=== PATIENT | female | born 1975 | race American Indian/Alaskan Native ===

== ENCOUNTER 2019-10-03 08:52 | Emergency (ER) | payer SELFPAY ==
--- NOTE | 2019-10-03 13:29 | Emergency Department Report ---
Chief Complaint: Upper Respiratory Infection Stated Complaint: SINUS Time Seen by Provider: 10/03/19 12:47 - HPI History of Present Illness: 44-year-old -[place] female patient presents for evaluation to rule out coronavirus x today. She states she has had 3 days of nasal congestion and that her job was concerned and sent her here for testing. She denies any fever/chills/sweats, cough, shortness of breath, recent travel outside the country, or contact with individuals who have recently traveled outside the country or have symptoms of the coronavirus. Patient states she has history of allergies and that her symptoms are due to this. She denies any facial pain or pressure or other complaints or concerns. - Exam Vital Signs: Vital Signs 10/03/19 08:56 Temperature 98.7 F Pulse Rate 95 H Respiratory 15 Rate Blood Pressure 177/99 [Right] O2 Sat by Pulse 98 Oximetry MSE screening note: Focused history and physical exam performed. Due to findings the following was ordered: ED Medical Decision Making - Medical Decision Making 44-year-old -[place] female patient presents for evaluation to rule out coronavirus x today. She states she has had 3 days of nasal congestion and that her job was concerned and sent her here for testing. She denies any fever/chills/sweats, cough, shortness of breath, recent travel outside the country, or contact with individuals who have recently traveled outside the country or have symptoms of the coronavirus. Patient states she has history of allergies and that her symptoms are due to this. She denies any facial pain or pressure or other complaints or concerns. Patient is well-appearing. Her vitals are stable. Blood pressure elevated- patient denies history of hypertension. She denies any chest pain, shortness of breath, headache, vision changes, dizziness, or other symptoms. Recommend follow-up with primary care provider for further evaluation of her blood pressure within 3 days. She is stable for discharge home. Discussed strict return precautions in detail with patient who verbalizes understanding. ED Disposition for MSE Clinical Impression: Nasal congestion, Elevated BP without diagnosis of hypertension Disposition: MED SCREENING EXAM-LEFT Is pt being admited?: No Condition: Stable Instructions: Allergic Rhinitis (ED), Hypertension (ED) Additional Instructions: Recommend [id number] fluticasone nasal spray and levocetirizine (Xyzal) as needed for congestion. Referrals: PRIMARY CARE, [Primary Care Provider] - 2-3 Days (Elevated blood pressure) Forms: Work/School Release Form(ED) Physical Exam - Physical Exam Vital Signs: Vital Signs 10/03/19 08:56 Temperature 98.7 F Pulse Rate 95 H Respiratory 15 Rate Blood Pressure 177/99 [Right] O2 Sat by Pulse 98 Oximetry ED General adult EXAM - General General appearance: alert, in no apparent distress Limitations: No Limitations - Head Head exam: Positive: atraumatic, normocephalic - ENT ENT exam: Positive: normal exam, normal orophraynx, other (Mild rhinorrhea noted bilaterally with moderate swelling of turbinates bilaterally. No sinus tenderness noted to palpation) - Neck Neck exam: Positive: normal inspection, full ROM. Negative: tenderness, lymphadenopathy - Respiratory Respiratory exam: Positive: normal lung sounds bilaterally. Negative: respiratory distress - Cardiovascular Cardiovascular Exam: Positive: regular rate, normal rhythm - Neurological Neurological exam: Positive: alert, oriented X3, normal gait - Psychiatric Psychiatric exam: Positive: normal affect, normal mood - Skin Skin exam: Positive: warm, dry, intact, normal color. Negative: rash, cyanosis, diaphoretic, erythema
[2019-10-03 13:47] VITALS: BP 130/83
== END 2019-10-03 13:45 | disposition left against medical advice (07) ==
LOC: ED 08:52
DX: R03.0 Elevated blood-pressure reading, without diagnosis of hypertension (principal); R09.81 Nasal congestion
CPT/HCPCS: 99281

== ENCOUNTER 2020-07-30 02:08 | Emergency (ER) | payer BC ==
[2020-07-30] MEDS ORDERED: ASPIRIN 325 MG TAB PO ONE (02:26)
--- NOTE | 2020-07-30 03:10 | Emergency Department Report ---
ED Chest Pain HPI - General Chief Complaint: Chest Pain Stated Complaint: SOB/CHEST PAIN PUI?: No Time Seen by Provider: 07/30/20 02:36 Source: patient Mode of arrival: Ambulatory Limitations: No Limitations - History of Present Illness Initial Comments: Patient is a 45-year-old female that presents emergency room with complaints of chest pain and difficulty breathing and shortness of breath and lightheadedness. Patient states that her symptoms started 2 hours prior to arrival. Patient states her chest pain is a pressure. Patient states it is a 5 out of 10. Patient states it is nonradiating. Patient states in the center of her chest. Patient states her chest pain and shortness of breath are unchanged with exertion. Patient states that her chest pain and shortness of breath have no modifying factors. Patient states that her blood pressure has been up for a few weeks. Patient states she is to have a prescription for lisinopril. Patient states she has been taking her 's lisinopril, lisinopril/hydrochl orothiazide 20 mg / 25 mg for few weeks. Patient states she took a dose yesterday morning.. Patient denies fever and chills. Patient denies nausea vomiting. Patient denies diaphoresis Patient denies recent travel. Patient denies recent international travel. Patient denies exposure to the novel coronavirus. Patient denies sick contacts. Patient denies fever and chills. Patient denies cough. Patient denies diarrhea. Patient denies coming in contact with anybody with symptoms of the no germaine coronavirus. MD Complaint: chest pain -: Sudden Onset: during rest Pain Location: substernal, left chest, right chest Pain Radiation: none Severity: mild Severity scale (0 -10): 5 Quality: pressure Consistency: constant Improves With: nothing Worsens With: nothing re: dyspnea. denies: nausea, vomting, diaphoresis, sense of impending doom Other Symptoms: denies: cough, fever, syncope, rash, acid taste in mouth, leg swelling, palpitations, burping Treatments Prior to Arrival: none Aspirin use within the Past 7 Days: (0) No - Related Data On Oral Contraceptives: No Previous Rx's Medication Instructions Recorded Last Taken Type Losartan/Hydrochlorothiazide 1 each PO DAILY 20 Days #20 tablet 07/30/20 Unknown Rx [Losartan-Hctz 100-25 mg Tab] Allergies Allergy/AdvReac Type Severity Reaction Status Date / Time No Known Allergies Allergy Unverified 10/03/19 08:57 Heart Score - HEART Score History: Slightly suspicious EKG: Normal Age: < 45 Risk factors: No known risk factors Troponin: < normal limit HEART Score: 0 ED Review of Systems ROS: Stated complaint: SOB/CHEST PAIN Other details as noted in HPI Constitutional: denies: chills, fever Eyes: denies: eye pain, eye discharge, vision change ENT: denies: ear pain, throat pain Respiratory: shortness of breath. denies: cough, wheezing Cardiovascular: chest pain. denies: palpitations Endocrine: no symptoms reported Gastrointestinal: denies: abdominal pain, nausea, diarrhea Genitourinary: denies: urgency, dysuria, discharge Musculoskeletal: denies: back pain, joint swelling, arthralgia Skin: denies: rash, lesions Neurological: as per HPI. denies: headache, weakness, paresthesias Psychiatric: denies: depression Hematological/Lymphatic: denies: easy bleeding, easy bruising ED Past Medical Hx - Past Medical History Previous Medical History?: Yes Hx Hypertension: Yes Hx Psychiatric Treatment: Yes (Anxiety) Additional medical history: Obesity - Surgical History Past Surgical History?: Yes Additional Surgical History: Tubal Ligation - Family History Family history: no significant - Social History Smoking Status: Never Smoker Substance Use Type: None - Medications Home Medications: Home Medications Medication Instructions Recorded Confirmed Last Taken Type Losartan/Hydrochlorothiazide 1 each PO DAILY 20 Days #20 tablet 07/30/20 Unknown Rx [Losartan-Hctz 100-25 mg Tab] ED Physical Exam - General Limitations: No Limitations General appearance: alert, in no apparent distress - Head Head exam: Present: atraumatic, normocephalic - Eye Eye exam: Present: normal appearance - ENT ENT exam: Present: mucous membranes moist - Neck Neck exam: Present: normal inspection - Respiratory Respiratory exam: Present: normal lung sounds bilaterally. Absent: respiratory distress - Cardiovascular Cardiovascular Exam: Present: regular rate, normal rhythm. Absent: systolic murmur, diastolic murmur, rubs, gallop - GI/Abdominal GI/Abdominal exam: Present: soft, normal bowel sounds - Extremities Exam Extremities exam: Present: normal inspection - Back Exam Back exam: Present: normal inspection - Neurological Exam Neurological exam: Present: alert, oriented X3 - Psychiatric Psychiatric exam: Present: normal affect, normal mood - Skin Skin exam: Present: warm, dry, intact, normal color. Absent: rash ED Course Vital Signs 07/30/20 07/30/20 07/30/20 02:20 02:26 02:44 Temperature 97.8 F Pulse Rate 68 Respiratory 18 18 Rate Blood Pressure 156/94 Blood Pressure [Right] O2 Sat by Pulse 100 98 Oximetry 07/30/20 07/30/20 07/30/20 03:00 03:30 03:48 Temperature Pulse Rate 68 57 L 79 Respiratory 12 20 18 Rate Blood Pressure 148/84 148/81 Blood Pressure 140/78 [Right] O2 Sat by Pulse 98 99 97 Oximetry 07/30/20 07/30/20 07/30/20 04:00 04:30 05:00 Temperature Pulse Rate 60 64 51 L Respiratory 18 11 L 11 L Rate Blood Pressure 141/82 141/82 153/79 Blood Pressure [Right] O2 Sat by Pulse 100 100 99 Oximetry - Reevaluation(s) Reevaluation #1: Patient states that she is asymptomatic. Patient dates his chest pain have resolved. Patient states her anxiety is better. I discussed all results and clinical findings with patient. I discussed plan of care with patient. Patient agrees with plan of care. Patient is stable for discharge. Patient will be discharged home. Patient given discharge instructions. Patient voiced understanding of discharge instructions. 07/30/20 04:34 MEE score - Mee Score Age > 65: (0) No Aspirin use within the Past 7 Days: (0) No 3 or more CAD Risk Factors: (0) No 2 or more Angina events in past 24 hrs: (0) No Known CAD with more than 50% Stenosis: (0) No Elevated Cardiac Markers: (0) No ST Deviation Greater than 0.5mm: (0) No MEE Score: 0 ED Medical Decision Making - Lab Data Result diagrams: 07/30/20 03:03 07/30/20 03:03 - EKG Data -: EKG Interpreted by [facility] EKG shows normal: sinus rhythm, axis, intervals, QRS complexes, ST-T waves Rate: normal - Radiology Data Radiology results: report reviewed CHEST 1 VIEW INDICATION / CLINICAL INFORMATION: Chest Pain. COMPARISON: None available. FINDINGS: SUPPORT DEVICES: None. HEART / MEDIASTINUM: No significant abnormality. LUNGS / PLEURA: No significant pulmonary or pleural abnormality. No pneumothora x. ADDITIONAL FINDINGS: No significant additional findings. IMPRESSION: 1. No acute findings. - Medical Decision Making Patient is a 45-year-old female presents emergency room with complaints of chest pressure, difficulty breathing and lightheadedness. Patient also has elevated blood pressure and hypertension. Patient is 32 years and has been taking her 's blood pressure medications. Patient is currently taking 20 mg of lisinopril and 25 mg hydrochlorothiazide in a combination pill. Patient had labs done which were essentially unremarkable. Patient had a chest x-ray which was negative for acute finding. Patient had an EKG which was negative for acute findings. Patient will be started on losartan/hydrochlorothiazide. Patient is stable for discharge. Patient given discharge instructions. - Differential Diagnosis Anxiety, chest pain, chest pressure, uncontrolled blood pressure, Critical care attestation.: If time is entered above; I have spent that time in minutes in the direct care of this critically ill patient, excluding procedure time. ED Disposition Clinical Impression: Uncontrolled hypertension, Essential hypertension, Lightheadedness, SOB (shortness of breath) Chest pain Qualifiers: Chest pain type: unspecified Qualified Code(s): R07.9 - Chest pain, unspecified Disposition: DC-01 TO HOME OR SELFCARE Is pt being admited?: No Does the pt Need Aspirin: No Condition: Stable Instructions: DASH Eating Plan, Nonspecific Chest Pain, Adult, Nonspecific Chest Pain, Adult, [id number], Hypertension, Adult, [id number], Preventing Hypertension, Managing Your Hypertension, Chest Pain (ED), Hypertension (ED) Additional Instructions: Patient to follow-up with primary care in 2 to 3 days. Patient to rest. Patient to increase water. Patient to monitor blood pressure at home. Patient to keep a blood pressure log. Patient DLO salt, heart healthy diet.. Patient to take Tylenol as needed for pain. Patient to take meds as directed. Patient to return to the ER if condition worsens, changes or new symptoms arise. Prescriptions: Losartan/Hydrochlorothiazide [Losartan-Hctz 100-25 mg Tab] 1 each PO DAILY 20 Days #20 tablet Referrals: PRIMARY CARE, [Primary Care Provider] - 2-3 Days ABDIRIZAK MCKEON MD [Staff Physician] - 2-3 Days Time of Disposition: 04:36
--- NOTE | 2020-07-30 03:18 | XRay Report ---
CHEST 1 VIEW INDICATION / CLINICAL INFORMATION: Chest Pain. COMPARISON: None available. FINDINGS: SUPPORT DEVICES: None. HEART / MEDIASTINUM: No significant abnormality. LUNGS / PLEURA: No significant pulmonary or pleural abnormality. No pneumothorax. ADDITIONAL FINDINGS: No significant additional findings. IMPRESSION: 1. No acute findings. Signer Name: Vandana Leyva MD Signed: 07/30/2020 3:14 AM Workstation Name: [email or web address]
[2020-07-30 03:41] LABS: Basophils % (Auto) 0.3 % (0.0-1.8); Eosinophils # (Auto) 0.1 K/mm3 (0.0-0.4); Eosinophils % (Auto) 1.3 % (0.0-4.3); Hematocrit 37.1 % (30.3-42.9); Hemoglobin 11.8 gm/dl (10.1-14.3); Mean Corpuscular HGB Conc 32 % (30-34); Mean Corpuscular Volume 82 fl (79-97); Monocytes # (Auto) 0.5 K/mm3 (0.0-0.8); Monocytes % (Auto) 6.9 % (0.0-7.3); Platelet Count 287 K/mm3 (140-440); Red Blood Count 4.52 M/mm3 (3.65-5.03); Red Cell Distribution Width 16.2 % (13.2-15.2)
[2020-07-30 03:58] LABS: Blood Urea Nitrogen 13 mg/dL (7-17); Hemolysis Index 2
[2020-07-30 04:05] LABS: BUN/Creatinine Ratio 22
[2020-07-30 05:17] VITALS: BP 153/79
== END 2020-07-30 05:18 | disposition home or self-care (01) ==
LOC: ED 02:08
DX: R07.89 Other chest pain (principal); R06.02 Shortness of breath; R42 Dizziness and giddiness; I10 Essential (primary) hypertension; F41.9 Anxiety disorder, unspecified; Z98.51 Tubal ligation status; Z79.899 Other long term (current) drug therapy
CPT/HCPCS: 36415; 71045; 80048; 84484; 85025; 93005